=== PATIENT | female | born 1995 | race Caucasian/White ===

== ENCOUNTER → 2016-08-23 | Outpatient (CLI) | payer OTHER ==
[2016-08-28 17:11] LABS: CASHEW CLASS 0; CASHEW IGE <0.10 KU/L; HAZELNUT CLASS 0/1; PEANUT IGE <0.10 KU/L; PECAN NUT CLASS 0; PECAN NUT IGE <0.10 KU/L; PISTACHIO CLASS 0; PISTACHIO IGE <0.10 KU/L; RAST ALMOND CLASS 0; RAST ALMOND IGE <0.10 KU/L; RAST BRAZIL NUT CLASS 0; RAST BRAZIL NUT IGE <0.10 KU/L; RAST HAZELNUT IGE 0.14 KU/L; WALNUT CLASS 0
== END | disposition home or self-care (01) ==
LOC: C.LAB1850 09:15
PROVIDERS: ATTEND Internal Medicine Pulmonary Disease
DX: Z91.018 Allergy to other foods (principal)